=== PATIENT | male | born 1955 | race Caucasian/White ===

== ENCOUNTER 2018-01-16 15:09 | Outpatient (CLI) | payer BC ==
[2018-01-16 16:20] LABS: #Basophils 0.1 thou/uL (0.0-0.2); #Eosinphils 0.1 thou/uL (0.0-0.7); #Lymphocytes 1.9 thou/uL (1.20-3.40); #Monocytes 0.8 thou/uL (0.11-0.59); #Neutrophils 4.5 thou/uL (1.40-6.50); %Basophils 0.8 % (0.0-1.0); %Eosinophils 1.9 % (0.0-10.0); %Lymphocytes 25.8 % (21.0-51.0); %Monocytes 11.3 % (0.0-10.0); %Neutrophils 60.2 % (42.0-75.0); Hemoglobin 14.9 g/dL (14.0-18.0); Mean Corpuscular HGB CONC 32.1 g/dL (32.0-36.0); Mean Corpuscular Hemoglobin 30.9 pg (27.0-31.0); Mean Corpuscular Volume 96.2 fL (78.0-98.0); Mean Platelet Volume 7.8 fL (7.4-10.4); Platelet Count 184 thou/uL (130-400); RBC Distribution Width 12.6 % (11.5-14.5); Red Blood Cell (RBC) Count 4.82 mill/uL (4.70-6.10); White Blood Cell (WBC) Count 7.5 thou/uL (4.8-10.8)
== END 2018-01-16 15:10 | disposition home or self-care (01) ==
LOC: LABBT 15:09
PROVIDERS: ATTEND Internal Medicine Cardiovascular Disease
DX: Z01.812 Encounter for preprocedural laboratory examination (principal); R94.30 Abnormal result of cardiovascular function study, unspecified
CPT/HCPCS: 36415; 80053; 80061; 85025

== ENCOUNTER 2018-01-19 06:00 | Inpatient (IN) | payer BC ==
[2018-01-16 15:42] VITALS: BMI 24.3
[2018-01-19] MEDS ORDERED: Lidocaine 1% (PF) 30 ML VIAL ONE (06:28)
[2018-01-19] MEDS ORDERED: Heparin 10,000 UNITS/1 ML VIAL ONE (06:28)
[2018-01-19] MEDS ORDERED: Diazepam 5 MG TAB ONE (06:55)
[2018-01-19] MEDS ORDERED: Fentanyl 100 MCG/2 ML VIAL ONE (07:07)
[2018-01-19] MEDS ORDERED: Midazolam HCl 2 mg/2 ml Vial ONE (07:07)
[2018-01-19] MEDS ORDERED: Protamine Sulfate 50 MG/5 ML VIAL ONE (07:33)
[2018-01-19] MEDS ORDERED: Aggrastat 12.5 MG/250 ML 250 ML ONE (07:43)
[2018-01-19] MEDS ORDERED: Acetaminophen/Codeine 30-300mg Tablet PO PRN ×2 (08:03)
[2018-01-19] MEDS ORDERED: Nitroglycerin 0.4 MG TAB (25 Tab Bottle) SL PRN (08:03)
[2018-01-19] MEDS ORDERED: traMADol HCl 50 MG TAB PO PRN (08:03)
[2018-01-19] MEDS ORDERED: Aggrastat 12.5 MG/250 ML 250 ML IVPB SCH (08:15)
[2018-01-19] MEDS ORDERED: Sodium Chloride 0.9% 1,000 ML IV SCH (08:15)
[2018-01-19] MEDS ORDERED: Sodium Chloride 0.9% 200 ML IV SCH (08:15)
[2018-01-19] MEDS ORDERED: traMADol HCl 50 MG TAB ONE (09:34)
[2018-01-19] MEDS ORDERED: Iopamidol 370 76% 100 ML VIAL ONE (10:35)
[2018-01-19] MEDS ORDERED: Morphine 4 MG/ML VIAL ONE (11:26)
[2018-01-19] MEDS ORDERED: Morphine 2 MG/ML SYRINGE SLOW IVP PRN (11:54)
[2018-01-19] MEDS ORDERED: Atropine Sulfate 1 mg/10 ml Syringe ONE (12:52)
[2018-01-19 15:08] LABS: Hemoglobin 14.5 g/dL (14.0-18.0); Platelet Count 193 thou/uL (130-400)
[2018-01-19] MEDS: Bupropion 150 MG XL TAB PO SCH (15:48)
[2018-01-19] MEDS: clonazePAM 0.5 MG TAB PO SCH ×3 (15:48→20:17)
[2018-01-19] MEDS: Aripiprazole 10 MG TAB PO SCH (15:49)
[2018-01-19] MEDS: Carvedilol 3.125 MG TAB PO SCH (16:01)
[2018-01-19] MEDS ORDERED: Carvedilol 6.25 MG TAB PO SCH (17:00)
[2018-01-19] MEDS ORDERED: Bupropion 150 MG XL TAB PO SCH (21:00)
[2018-01-19] MEDS ORDERED: Rosuvastatin 20 MG TAB PO SCH (21:00)
[2018-01-20 05:52] LABS: Hemoglobin 14.2 g/dL (14.0-18.0); Platelet Count 192 thou/uL (130-400)
[2018-01-20 06:13] LABS: Anion Gap 9 mmol/L (10-20); BUN (Urea Nitrogen) 18 mg/dL (8.4-25.7); Calc. Creatinine Clearance 72 mL/min (70-130); Calcium 9.1 mg/dL (7.8-10.44); Carbon Dioxide 25 mmol/L (23-31); Chloride 109 mmol/L (98-107); Estimated GFR-MDRD 55; Glucose 124 mg/dL (80-115); Potassium 4.4 mmol/L (3.5-5.1); Sodium 139 mmol/L (136-145)
[2018-01-20] MEDS ORDERED: Prevnar 13-Val Conj/PF 0.5 ML SYRINGE IM ONE (09:00)
[2018-01-20] MEDS ORDERED: Aspirin 325 mg Enteric Coated Tablet PO SCH (09:00)
--- NOTE | 2018-01-20 09:04 | DIS ---
DISCHARGE DIAGNOSES: 1. Noncompliance with aspirin and other medications. 2. Thrombus in the first obtuse marginal graft and in the ramus graft. 3. Twenty-four hours of Aggrastat and aspirin resumed. 4. Status post coronary artery bypass graft x4 with grafts patent. 5. Moderate left ventricular dysfunction at this time with ejection fraction of 35-40%. 6. Smoker. 7. History of myocardial infarction. 8. Ischemic cardiomyopathy, ejection fraction of 30-35% prior to surgery which increased to 50-55%, but is now down to 35-40%. 9. Moderate mitral regurgitation. 10. Hypercholesterolemia. 11. Positive family history. 12. Chronic kidney disease. 13. Erectile dysfunction. 14. Anxiety/depression. DISCHARGE DISPOSITION: The patient will be seen in 2 months with fasting lipid profile and complete metabolic profile being obtained. DISCHARGE MEDICATIONS: Abilify 10 mg daily, aspirin 325 daily, bupropion XL 150 q.a.m., 300 mg at bedtime, carvedilol 3.125 b.i.d., Klonopin 0.5 t.i.d., simvastatin 40 mg daily, tramadol 50 q.6 hours p.r.n., Cialis 20 mg p.r.n. HOSPITAL COURSE: Mr. Ingram presented in the office for the first time in several years in 12/2017. His had and he lost his job and insurance and he stopped coming for followups. He had resumed smoking. He would get shortness of breath with anxiety, but denied dyspnea on exertion with walking except up a flight of stairs. He also had orthostatic lightheadedness. He underwent Lexiscan Cardiolite testing, which revealed mid to distal anterior wall and proximal inferior wall ischemia. He underwent a cardiac catheterization. There was moderate anterior and mild global hypokinesis with ejection fraction of 35-40%. The left main had 30% stenosis, LAD, 95% proximal stenosis. Circumflex - no significant disease. Ramus 80%. The right coronary was totally occluded proximally. Bypass grafts revealed the CINTRON to the LAD to be patent. The obtuse marginal 1 and ramus grafts were patent; however, both had thrombus present in them. The right coronary artery graft was patent. Upon further discussion with the patient, he had not even been taking aspirin and he was given 324 mg chewable aspirin in the cardiac cath lab technologist and started on Aggrastat for 24 hours. His creatinine prior to catheterization was 1.33 and the day after catheterization was 1.32. Cholesterol is 242, triglycerides 117, HDL 50, LDL 169. He has been on rosuvastatin 20 mg in the past; however, it was felt that he probably needed to be on 40 mg and he will be sent home on that dose. It is somewhat questionable if Mr. Ingram will be compliant with his medications. He was bradycardic at times and his carvedilol dose was reduced from 6.25 b.i.d. to 3.125 b.i.d. This may also be the reason for his orthostatic dizziness. He continues to smoke. [facility]
[2018-01-20 09:10] VITALS: BP 118/73; TEMP 97.9
[2018-01-20] MEDS: clonazePAM 0.5 MG TAB PO SCH (09:19)
[2018-01-20] MEDS: Carvedilol 3.125 MG TAB PO SCH (09:19)
[2018-01-20] MEDS: Bupropion 150 MG XL TAB PO SCH (09:19)
[2018-01-20] MEDS: Aripiprazole 10 MG TAB PO SCH (09:19)
== END 2018-01-20 11:28 | disposition home or self-care (01) | DRG 287 ==
LOC: CCL 06:00 → 2NO 14:54
PROVIDERS: ADMIT Internal Medicine Cardiovascular Disease; ATTEND Internal Medicine Cardiovascular Disease
PROC: 4A023N7 Measurement of Cardiac Sampling and Pressure, Left Heart, Percutaneous Approach (ICD-10-PCS; principal; 2018-01-19)
PROC: B2131ZZ Fluoroscopy of Multiple Coronary Artery Bypass Grafts using Low Osmolar Contrast (ICD-10-PCS; 2018-01-19)
PROC: B2101ZZ Fluoroscopy of Single Coronary Artery using Low Osmolar Contrast (ICD-10-PCS; 2018-01-19)
PROC: B2151ZZ Fluoroscopy of Left Heart using Low Osmolar Contrast (ICD-10-PCS; 2018-01-19)
PROC: 3E03317 Introduction of Other Thrombolytic into Peripheral Vein, Percutaneous Approach (ICD-10-PCS; 2018-01-19)
DX: I25.10 Atherosclerotic heart disease of native coronary artery without angina pectoris (principal); T82.867A Thrombosis due to cardiac prosthetic devices, implants and grafts, initial encounter; Z91.14 Patient's other noncompliance with medication regimen; F17.210 Nicotine dependence, cigarettes, uncomplicated; I25.2 Old myocardial infarction; I25.5 Ischemic cardiomyopathy; E78.00 Pure hypercholesterolemia, unspecified; N52.9 Male erectile dysfunction, unspecified; F41.9 Anxiety disorder, unspecified; F32.9 Major depressive disorder, single episode, unspecified; I25.9 Chronic ischemic heart disease, unspecified; I25.82 Chronic total occlusion of coronary artery; Z95.1 Presence of aortocoronary bypass graft; E78.5 Hyperlipidemia, unspecified; I34.0 Nonrheumatic mitral (valve) insufficiency; M79.10 Myalgia, unspecified site; N18.9 Chronic kidney disease, unspecified; I50.9 Heart failure, unspecified
CPT/HCPCS: 36415; 80048; 80053; 80061; 82533; 85014; 85018; 85025; 85049; 85347; 90471; 90686; 90732; 92977; 93459; 99152; C1769; G0008; G0009; J0461; J1644; J2001; J2250; J2270; J2720; J3010; J3246

== ENCOUNTER 2018-10-12 10:50 | Inpatient (IN) | payer BC ==
[2018-10-12] MEDS ORDERED: Midazolam HCl 5 mg/ml Vial ONE (11:00)
[2018-10-12 11:08] LABS: #Eosinphils 0.1 thou/uL (0.0-0.7); #Lymphocytes 2.2 thou/uL (1.20-3.40); #Monocytes 0.7 thou/uL (0.11-0.59); #Neutrophils 7.6 thou/uL (1.40-6.50); %Basophils 0.4 % (0.0-1.0); %Eosinophils 0.9 % (0.0-10.0); %Lymphocytes 20.6 % (21.0-51.0); %Monocytes 6.9 % (0.0-10.0); %Neutrophils 71.2 % (42.0-75.0); Hemoglobin 16.7 g/dL (14.0-18.0); Mean Corpuscular HGB CONC 31.2 g/dL (32.0-36.0); Mean Corpuscular Volume 96.4 fL (78.0-98.0); Mean Platelet Volume 8.3 fL (7.4-10.4); Platelet Count 187 thou/uL (130-400); RBC Distribution Width 12.6 % (11.5-14.5); Red Blood Cell (RBC) Count 5.56 mill/uL (4.70-6.10); White Blood Cell (WBC) Count 10.7 thou/uL (4.8-10.8)
[2018-10-12] MEDS ORDERED: Lidocaine 1% (PF) 30 ML VIAL ONE (11:10)
[2018-10-12] MEDS ORDERED: Verapamil 5 MG/2 ML VIAL ONE (11:16)
[2018-10-12] MEDS ORDERED: Nitroglycerin 100MG/250ML BOT 250 ML ONE (11:16)
[2018-10-12 11:19] LABS: PTT 28.9 SEC (22.9-36.1); Prothrombin Time 13.2 SEC (12.0-14.7)
[2018-10-12] MEDS ORDERED: Heparin 10,000 UNITS/1 ML VIAL ONE (11:26)
[2018-10-12 11:31] LABS: ALT (SGPT) 36 U/L (8-55); AST (SGOT) 111 U/L (5-34); Albumin 4.3 g/dL (3.4-4.8); Alkaline Phosphatase 71 U/L (40-150); Anion Gap 12 mmol/L (10-20); BUN (Urea Nitrogen) 13 mg/dL (8.4-25.7); Bilirubin, Total 0.3 mg/dL (0.2-1.2); CK (CPK) 1191 U/L (30-200); Calc. Creatinine Clearance 0 mL/min (70-130); Calcium 9.2 mg/dL (7.8-10.44); Carbon Dioxide 24 mmol/L (23-31); Chloride 108 mmol/L (98-107); Estimated GFR-MDRD 54; Globulin 2.8 g/dL (2.4-3.5); Glucose 110 mg/dL (80-115); Potassium 4.2 mmol/L (3.5-5.1); Protein, Total 7.1 g/dL (5.8-8.1); Sodium 140 mmol/L (136-145)
[2018-10-12 12:01] LABS: CKMB 76.9 ng/mL (0-6.6)
[2018-10-12] MEDS ORDERED: Milk Of Magnesia 30 ML UDCUP PO PRN (12:18)
[2018-10-12] MEDS ORDERED: traMADol HCl 50 MG TAB PO PRN (12:18)
[2018-10-12] MEDS ORDERED: Mag-Al 1200 mg/1200 mg/30 ML UDCUP PO PRN (12:18)
[2018-10-12] MEDS ORDERED: Aggrastat 12.5 MG/250 ML 250 ML IVPB SCH (12:30)
[2018-10-12] MEDS ORDERED: Clopidogrel Bisulfate 300 MG TAB PO SCH (12:30)
[2018-10-12] MEDS ORDERED: Propofol 1,000 MG/100 ML VIAL IV ONE (12:51)
[2018-10-12 13:29] LABS: Actual Bicarbonate (HCO3a) 20.6 mEq/L (22-28); Base Excess (BEa) -4.1 mEq/L (-2.0 to +3.0); CO2 Tension 37.2 mmHg (35.0-45.0); Carboxyhemoglobin (COHb) 1.4 gm% (0.0-3.0); Hemoglobin (Hb) 16.7 g/dL (14.0-18.0); O2 Tension (PaO2) 79.8 mmHg (> 80.0); Potassium - ABG Lab 3.75 mmol/L (3.70-5.30); pH, Arterial 7.36 (7.35-7.45)
[2018-10-12] MEDS ORDERED: Nitroglycerin 50 MG/250 ML BOT 250 ML ONE (13:42)
--- NOTE | 2018-10-12 13:44 | RAD ---
Chest one view: HISTORY: Intubation Renal 8 FINDINGS: Endotracheal tube the tip is at approximately the T4 level. There does appear to be an NG tube in hao ce although I cannot follow it beyond the T8 or T9 region. There is considerable overlying monitor leads. Postop midline sternotomy. Parenchymal changes noted in the right lower lobe with minimal righ t hemidiaphragm elevation having the appearance of some right lower lobe atelectasis with possible associated pneumonia. The left lung appears clear. IMPRESSION: Endotracheal tube in satisfactory location. The distal portion of the NG tube is poorly seen and not seen beyond approximately the lower thoracic spine and not definitely seen entering the stomach. Right lower lobe parenchymal changes with evidence for atelectasis and possible pneumonia.
[2018-10-12] MEDS ORDERED: Dexamethasone 10 MG in Sodium Chloride 0.9% 50 ML IVPB SCH (13:45)
[2018-10-12] MEDS ORDERED: Lorazepam 2 MG/ML VIAL ONE (13:48)
[2018-10-12] MEDS ORDERED: niCARdipine 40MG In NaCl 40 MG/200 ML BAG IVPB SCH (14:00)
[2018-10-12] MEDS ORDERED: Nitroglycerin 50 MG/250 ML BOT 250 ML IVPB SCH (14:00)
[2018-10-12] MEDS ORDERED: niCARdipine 25 MG in Sodium Chloride 0.9% 250 ML 240 ML IVPB SCH (14:00)
[2018-10-12 14:25] LABS: Actual Bicarbonate (HCO3a) 19.2 mEq/L (22-28); Base Excess (BEa) -7.9 mEq/L (-2.0 to +3.0); CO2 Tension 45.1 mmHg (35.0-45.0); Calcium, Ionized 1.07 mmol/L (1.12-1.30); Carboxyhemoglobin (COHb) 1.2 gm% (0.0-3.0); Hemoglobin (Hb) 16.8 g/dL (14.0-18.0); O2 Tension (PaO2) 87.2 mmHg (> 80.0); Potassium - ABG Lab 3.62 mmol/L (3.70-5.30)
[2018-10-12 14:29] LABS: Puncture Site ALINE
[2018-10-12 14:29] LABS: pH, Arterial 7.25 (7.35-7.45)
[2018-10-12 14:30] LABS: ALV-art Gradient 141.625 (0-20); Puncture Site ALINE
--- NOTE | 2018-10-12 14:44 | CON ---
DATE OF CONSULTATION: CHIEF COMPLAINT: Acute AK and third-degree block. HISTORY OF PRESENT ILLNESS: History is limited. Mr. Ingram recently was life flighted from an outlying town after he developed shortness of breath, bradycardia, and near passing out spell. He was intubated in the field. He also had intermittent third-degree AV block and ST-segment elevation noted inferiorly. These were both concerning for right coronary artery lesion. He was brought urgently to the emergency room, where he was stabilized, although upon transfer to the bed, he was inadvertently extubated. No family was available. PAST MEDICAL HISTORY: Hyperlipidemia; previous tobacco abuse; CAD, status post bypass surgery; previous AK; anxiety; depression. ALLERGIES: ATORVASTATIN. SOCIAL HISTORY: Significant issues with noncompliance. HOME MEDICATIONS: Unknown. REVIEW OF SYSTEMS: Unobtainable. He is currently intubated and sedated. PHYSICAL EXAMINATION: GENERAL: Currently, intubated and sedated. VITAL SIGNS: Blood pressure 211/110, respirations 20, heart rate is 78. NEUROLOGIC: The patient is alert and oriented x3 with no focal neurologic deficits. HEENT: Sclerae without icterus. Mouth has moist mucous membranes with normal pallor. NECK: No JVD. Carotid upstroke brisk. No bruits bilaterally. LUNGS: Clear to auscultation with unlabored respirations. BACK: No scoliosis or kyphosis. CARDIAC: Regular rate and rhythm with normal S1 and S2. No S3 or S4 noted. No significant rubs, murmurs, thrills, or gallops noted throughout the precordium. PMI is not displaced. There is no parasternal heave. ABDOMEN: Soft, nontender, nondistended. No peritoneal signs present. No hepatosplenomegaly. No abnormal striae. EXTREMITIES: 2+ femoral and 2+ dorsalis pedis pulses. No cyanosis, clubbing, or edema. SKIN: No gross abnormalities. DIAGNOSTIC STUDIES: EKG showed normal sinus rhythm, ST-segment elevation inferiorly. PERTINENT LABORATORY DATA: Pending. IMPRESSION: 1. Acute myocardial infarction. 2. Coronary artery disease. 3. Status post bypass surgery. 4. Noncompliance. RECOMMENDATIONS: At this point, recommend urgent coronary angiography plus PCI. I did review his previous films. He did have a graft noted to the right coronary artery. He also had a graft noted to an OM and diagonal branch and the CINTRON to the LAD. This was felt to be emergent and the patient was transferred to the tailings dam laborer in guarded condition. He will likely also need a temporary pacemaker due to intermittent third-degree block, likely from a recent AK to the right coronary distribution. Job ID: [id number]
[2018-10-12 17:00] LABS: CKMB 186.5 ng/mL (0-6.6); Troponin I 44.863 ng/mL (< 0.028)
--- NOTE | 2018-10-12 17:20 | CON ---
DATE OF CONSULTATION: 10/12/2018 TIME SPENT: 45 minutes of Critical Care time. CONSULTING PHYSICIAN: Mario Goodman MD REASON FOR CONSULTATION: Respiratory failure. HISTORY OF PRESENT ILLNESS: This patient presented from [facility] with an ST-segment myocardial infarction. He was intubated by EMS. He self-extubated in the ER and was re-intubated prior to going to the senior cytogenetics laboratory director. I believe he had a graft from the previous coronary artery bypass grafting surgery, which was found to be occluded. I am not sure what intervention was made. He did have to have a transvenous pacemaker placed because of intermittent third-degree heart block. When I saw him afterward in the CCU, he was stable except very uncomfortable from the ET tube being in place, so I made a decision to extubate him. Unfortunately, he became stridorous, and we have had to put him on BiPAP, and right now, he seems stable aside from his blood pressure. PAST MEDICAL HISTORY: 1. Coronary artery disease. 2. Anxiety. 3. Hyperlipidemia. MEDICATIONS: 1. Clonazepam 0.5 mg t.i.d. as needed. 2. Carvedilol 6.25 mg b.i.d. 3. Cialis 20 mg daily as needed. 4. Bupropion SR 150 mg 2 tablets in the evening and 1 tablet in the morning. 5. Aspirin 81 mg daily. 6. Abilify 5 mg every day. 7. Crestor 20 mg daily. SOCIAL HISTORY: Former 1 pack per day smoker, currently uses a vape pen, goes to approximately 2 pots a day. No illicit drug use. FAMILY MEDICAL HISTORY: Remarkable for coronary artery disease. REVIEW OF SYSTEMS: Cannot be obtained as the patient is currently on mechanical ventilation. PHYSICAL EXAMINATION: VITAL SIGNS: Heart rate 70, blood pressure 240/118, O2 saturation 100%, respiratory rate 27. GENERAL: He is currently on BiPAP, appears stable. HEENT: Unremarkable. NECK: No adenopathy or JVD. CHEST: Clear to auscultation anteriorly. CARDIAC: S1 and S2. Regular. ABDOMEN: Soft and nontender. EXTREMITIES: He has a right groin A-line and a right groin transvenous pacer. LABORATORY DATA: White blood cell count 10.7, hematocrit 53.6, platelet count 187. Troponin is 5.0. Sodium 140, potassium 4.2, chloride 108, CO2 of 24, BUN 13, creatinine 1.4, glucose 110. INR 1.0. His chest x-ray showed no overt mass, effusion, or infiltrate. ASSESSMENT: 1. Status post myocardial infarction. 2. Transient respiratory failure - he was basically intubated because of the bradycardia. 3. Postextubation stridor. 4. Hypertension. PLAN: 1. The patient will be kept on BiPAP. Hopefully, he will have to be reintubated. 2. I will give him a dose of Decadron and racemic epinephrine. 3. Ativan as needed for anxiety. 4. Cardene drip if needed. 5. Nitroglycerin drip. 6. We will follow with you. Job ID: [id number]
[2018-10-12 20:25] LABS: CKMB 189.5 ng/mL (0-6.6); Troponin I 56.171 ng/mL (< 0.028)
[2018-10-12] MEDS: Famotidine/PF 20 mg/2ml Vial SLOW IVP SCH (21:27)
[2018-10-12] MEDS: Carvedilol 3.125 MG TAB PO SCH (21:28)
[2018-10-12] MEDS ORDERED: Sodium Chloride 0.9% 250 ML IV SCH (22:15)
[2018-10-12] MEDS: Heparin 25,000 units/D5W 500 ML IV SCH (22:50)
[2018-10-12] MEDS: Heparin 10,000 UNITS/ 10 ML VIAL SLOW IVP SCH (22:50)
[2018-10-12] MEDS: Sodium Chloride 0.9% 1,000 ML IV SCH (22:51)
[2018-10-12] MEDS: Lorazepam 2 MG/ML VIAL SLOW IVP PRN (22:53)
[2018-10-13 05:10] LABS: #Lymphocytes 0.7 thou/uL (1.20-3.40); #Monocytes 0.4 thou/uL (0.11-0.59); #Neutrophils 10.9 thou/uL (1.40-6.50); %Basophils 0.1 % (0.0-1.0); %Eosinophils 0.1 % (0.0-10.0); %Lymphocytes 5.4 % (21.0-51.0); %Monocytes 3.6 % (0.0-10.0); %Neutrophils 90.8 % (42.0-75.0); Hemoglobin 13.9 g/dL (14.0-18.0); Mean Corpuscular HGB CONC 32.1 g/dL (32.0-36.0); Mean Corpuscular Hemoglobin 30.7 pg (27.0-31.0); Mean Corpuscular Volume 95.6 fL (78.0-98.0); Mean Platelet Volume 9.5 fL (7.4-10.4); Platelet Count 163 thou/uL (130-400); RBC Distribution Width 12.6 % (11.5-14.5); Red Blood Cell (RBC) Count 4.53 mill/uL (4.70-6.10)
[2018-10-13 05:19] LABS: ALT (SGPT) 54 U/L (8-55); AST (SGOT) 237 U/L (5-34); Albumin 3.8 g/dL (3.4-4.8); Alkaline Phosphatase 57 U/L (40-150); Anion Gap 13 mmol/L (10-20); BUN (Urea Nitrogen) 19 mg/dL (8.4-25.7); Bilirubin, Total 0.4 mg/dL (0.2-1.2); Calc. Creatinine Clearance 0 mL/min (70-130); Calcium 8.9 mg/dL (7.8-10.44); Carbon Dioxide 21 mmol/L (23-31); Chloride 110 mmol/L (98-107); Estimated GFR-MDRD 53; Globulin 2.3 g/dL (2.4-3.5); Glucose 140 mg/dL (80-115); Potassium 4.2 mmol/L (3.5-5.1); Protein, Total 6.1 g/dL (5.8-8.1); Sodium 140 mmol/L (136-145)
[2018-10-13] MEDS: Sodium Chloride 0.9% 1,000 ML IV SCH ×3 (08:44→17:11)
[2018-10-13] MEDS: Famotidine/PF 20 mg/2ml Vial SLOW IVP SCH ×2 (08:47→20:52)
[2018-10-13] MEDS: Carvedilol 3.125 MG TAB PO SCH ×2 (08:49→16:33)
--- NOTE | 2018-10-13 09:29 | PRG ---
DATE OF SERVICE: 10/13/2018 SUBJECTIVE: Mr. Ingram is very sedated this morning. He has been on Precedex drip. He also received a dose of Ativan. He is still on the BiPAP, but appears comfortable. PHYSICAL EXAMINATION: VITAL SIGNS: His temperature is 97.8, pulse 50, blood pressure 104/59 via right femoral A-line. HEENT: Unremarkable. NECK: No stridorous air noises. LUNGS: Clear. CARDIAC: S1 and S2 paced. ABDOMEN: Soft. EXTREMITIES: No edema. LABORATORY DATA: White blood cell count 12, hematocrit 43.3, and platelet count 163. PTT is 113. Sodium 140, potassium 4.2, chloride 110, CO2 of 21, BUN 19, creatinine 1.3, and glucose 140. Troponin is 56. ASSESSMENT: 1. Myocardial infarction. 2. Post extubation stridor. 3. Bradyarrhythmias. PLAN: 1. Try to lessen sedation and try off BiPAP as tolerated. 2. Continue anticoagulation per Cardiology. 3. Discussed with family at bedside. Job ID: [id number]
[2018-10-13] MEDS: Aspirin Chewable 81 MG TAB PO SCH ×2 (11:10→11:43)
[2018-10-13] MEDS: DOPamine 400 MG/D5W 250 ML 250 ML IVPB SCH (11:34)
[2018-10-13] MEDS: Acetaminophen/Codeine 30-300mg Tablet PO PRN ×2 (18:09→22:10)
[2018-10-13] MEDS: Heparin 10,000 UNITS/ 10 ML VIAL SLOW IVP SCH (18:39)
--- NOTE | 2018-10-13 18:50 | EKG ---
Test Reason : POST ANIGOPLASTY-RCA Blood Pressure : / mmHG Vent. Rate : 069 BPM Atrial Rate : 069 BPM P-R Int : 156 ms QRS Dur : 116 ms QT Int : 418 ms P-R-T Axes : 073 061 104 degrees QTc Int : 447 ms Normal sinus rhythm Left ventricular hypertrophy with QRS widening ST elevation consider inferior injury or acute infarct * ACUTE [place] * Consider right ventricular involvement in acute inferior infarct Abnormal ECG When compared with ECG of 22-JUN-2007 17:10, QRS duration has increased ST elevation now present in Inferior leads ST now depressed in Lateral leads Nonspecific T wave abnormality now evident in Lateral leads Confirmed by BERTRAM CAMPO, DR. Alvarado (4) on 10/13/2018 6:50:05 PM Referred By: JAMARI Confirmed By:DR. Jenny BURDEN MD
--- NOTE | 2018-10-13 18:53 | EKG ---
Test Reason : Blood Pressure : / mmHG Vent. Rate : 051 BPM Atrial Rate : 049 BPM P-R Int : 000 ms QRS Dur : 168 ms QT Int : 532 ms P-R-T Axes : 000 -47 089 degrees QTc Int : 490 ms Electronic ventricular pacemaker When compared with ECG of 12-OCT-2018 13:09, (Unconfirmed) Electronic ventricular pacemaker has replaced Sinus rhythm Confirmed by BERTRAM CAMPO, SGabe (4) on 10/13/2018 6:53:35 PM Referred By: JAMARI Confirmed By:DR. Jenny BURDEN MD
--- NOTE | 2018-10-13 18:54 | EKG ---
Test Reason : Blood Pressure : / mmHG Vent. Rate : 041 BPM Atrial Rate : 041 BPM P-R Int : 158 ms QRS Dur : 114 ms QT Int : 528 ms P-R-T Axes : 001 046 -72 degrees QTc Int : 435 ms Demand pacemaker; interpretation is based on intrinsic rhythm Marked sinus bradycardia with occasional Premature ventricular complexes Abnormal ECG When compared with ECG of 13-OCT-2018 07:21, (Unconfirmed) Sinus rhythm has replaced Electronic ventricular pacemaker Confirmed by BERTRAM CAMPO, DR. Alvarado (4) on 10/13/2018 6:54:18 PM Referred By: JAMARI Confirmed By:DR. Jenny BURDEN MD
[2018-10-14] MEDS: Heparin 25,000 units/D5W 500 ML IV SCH (02:09)
[2018-10-14] MEDS: DOPamine 400 MG/D5W 250 ML 250 ML IVPB SCH (02:10)
[2018-10-14] MEDS: Sodium Chloride 0.9% 1,000 ML IV SCH (02:10)
[2018-10-14] MEDS: Acetaminophen/Codeine 30-300mg Tablet PO PRN ×2 (06:27→10:32)
[2018-10-14 06:47] LABS: #Lymphocytes 1.1 thou/uL (1.20-3.40); #Monocytes 1.3 thou/uL (0.11-0.59); #Neutrophils 11.1 thou/uL (1.40-6.50); %Monocytes 9.3 % (0.0-10.0); %Neutrophils 82.6 % (42.0-75.0); Hemoglobin 12.5 g/dL (14.0-18.0); Mean Corpuscular HGB CONC 32.7 g/dL (32.0-36.0); Mean Corpuscular Hemoglobin 30.8 pg (27.0-31.0); Mean Corpuscular Volume 94.1 fL (78.0-98.0); Platelet Count 138 thou/uL (130-400); RBC Distribution Width 12.3 % (11.5-14.5); Red Blood Cell (RBC) Count 4.06 mill/uL (4.70-6.10); White Blood Cell (WBC) Count 13.5 thou/uL (4.8-10.8)
[2018-10-14 07:02] LABS: Anion Gap 9 mmol/L (10-20); BUN (Urea Nitrogen) 20 mg/dL (8.4-25.7); Calc. Creatinine Clearance 0 mL/min (70-130); Calcium 8.7 mg/dL (7.8-10.44); Carbon Dioxide 25 mmol/L (23-31); Cardiac Risk 3.7 (Less than 4.5); Chloride 109 mmol/L (98-107); Cholesterol 137 mg/dl (< 200 Desired); Estimated GFR-MDRD 60; Glucose 135 mg/dL (80-115); HDL Cholesterol 37 mg/dL (>60 Neg Risk); LDL Cholesterol, Calculated 77 mg/dL; Potassium 3.8 mmol/L (3.5-5.1); Sodium 139 mmol/L (136-145); Triglycerides 116 mg/dL (Less than 150)
--- NOTE | 2018-10-14 07:49 | PRG ---
DATE OF SERVICE: 10/14/2018 SUBJECTIVE: Mr. Ingram actually did well last night. He was placed on a dopamine drip last night, so he has not had any episodes of bradycardia and the pacemaker has not captured because his rate has not fallen below 50. He also did not require use of BiPAP last night. He no longer has a sore throat and has had no stridorous breathing. OBJECTIVE: VITAL SIGNS: On exam, temperature is 98.8, pulse 64, and blood pressure 115/60. His intake for 24 hours 3900, output 1740. HEENT: Unremarkable. NECK: No adenopathy or JVD. LUNGS: Clear anteriorly. CARDIAC: S1 and S2. Regular. ABDOMEN: Soft and nontender. EXTREMITIES: He has a right femoral art line and a right femoral transvenous pacer. LABORATORY DATA: White blood cell count 13.5, hematocrit 38.1, and platelet count 138. PTT is 77.6. Sodium 139, potassium 3.8, chloride 109, CO2 of 25, BUN 20, creatinine 1.2, and glucose 135. ASSESSMENT: 1. Myocardial infarction. 2. Transient complete heart block. 3. Post extubation stridor, which is now resolved. PLAN: I have cleaned up his unnecessary medications from the MAR. The BiPAP machine will be discontinued from the room. As soon as the transvenous pacemaker is at, he can be transferred to the floor. Job ID: [id number]
--- NOTE | 2018-10-14 08:01 | RAD ---
XR Chest 1 View Portable HISTORY: Respiratory distress, pneumonia COMPARISON: 10/12/2018 FINDINGS: There is been interval removal of the endotracheal and nasogastric tubes. Changes of median sternotomy are again seen. The heart size is normal. The lungs are well expanded without lobar consolidation, pneumothoraces or pleural effusions. IMPRESSION: No radiographic evidence of acute cardiopulmonary process.
[2018-10-14] MEDS: Aspirin Chewable 81 MG TAB PO SCH (08:28)
[2018-10-14] MEDS: Famotidine/PF 20 mg/2ml Vial SLOW IVP SCH ×2 (08:28→21:58)
[2018-10-14] MEDS: Ezetimibe 10 MG TAB PO SCH (08:28)
[2018-10-14] MEDS ORDERED: Morphine 4 MG/ML VIAL SLOW IVP PRN (12:54)
[2018-10-14] MEDS ORDERED: Morphine 4 MG/ML VIAL ONE (12:57)
[2018-10-14] MEDS ORDERED: Morphine 2 MG/ML SYRINGE SLOW IVP PRN (12:57)
[2018-10-14] MEDS ORDERED: Aggrastat 12.5 MG/250 ML 250 ML IVPB SCH (13:00)
[2018-10-14] MEDS: Aggrastat 12.5 MG/250 ML 250 ML IVPB SCH (13:11)
[2018-10-14] MEDS ORDERED: Iopamidol 370 76% 100 ML VIAL ONE (13:27)
[2018-10-14] MEDS ORDERED: Aspirin Chewable 81 MG TAB PO SCH (13:45)
[2018-10-14] MEDS ORDERED: Heparin 10,000 UNITS/1 ML VIAL ONE (14:27)
[2018-10-14] MEDS ORDERED: Lidocaine 1% (PF) 30 ML VIAL ONE (14:27)
[2018-10-14] MEDS ORDERED: Ondansetron PF 4 MG/2 ML Vial ONE (14:38)
[2018-10-14] MEDS ORDERED: Nitroglycerin 100MG/250ML BOT 0 ML ONE (14:38)
[2018-10-14] MEDS ORDERED: Fentanyl 100 MCG/2 ML VIAL ONE (15:06)
[2018-10-14] MEDS ORDERED: Midazolam HCl 2 mg/2 ml Vial ONE (15:06)
[2018-10-14] MEDS ORDERED: TICAGRELOR 90 MG TABLET ONE (15:29)
--- NOTE | 2018-10-14 15:30 | EKG ---
Test Reason : Blood Pressure : / mmHG Vent. Rate : 064 BPM Atrial Rate : 064 BPM P-R Int : 136 ms QRS Dur : 102 ms QT Int : 444 ms P-R-T Axes : -05 031 -72 degrees QTc Int : 458 ms Normal sinus rhythm Inferior infarct (cited on or before 14-OCT-2018) Abnormal ECG When compared with ECG of 13-OCT-2018 07:23, Electronic demand pacing is no longer Present Premature ventricular complexes are no longer Present Vent. rate has increased BY 23 BPM Confirmed by BERTRAM CAMPO, DR. Alvarado (4) on 10/14/2018 3:30:04 PM Referred By: GLENROY Confirmed By:DR. Jenny BURDEN MD
[2018-10-14] MEDS ORDERED: Heparin 25,000 units/D5W 500 ML ONE (15:31)
--- NOTE | 2018-10-14 15:31 | EKG ---
Test Reason : Blood Pressure : / mmHG Vent. Rate : 055 BPM Atrial Rate : 055 BPM P-R Int : 138 ms QRS Dur : 094 ms QT Int : 456 ms P-R-T Axes : 000 051 -65 degrees QTc Int : 436 ms Sinus bradycardia Inferior infarct (cited on or before 14-OCT-2018) * ACUTE [place] * Consider right ventricular involvement in acute inferior infarct Abnormal ECG When compared with ECG of 14-OCT-2018 12:06, (Unconfirmed) No significant change was found Confirmed by BERTRAM CAMPO, DR. Alvarado (4) on 10/14/2018 3:31:30 PM Referred By: GLENROY Confirmed By:DR. Jenny BURDEN MD
[2018-10-14] MEDS ORDERED: Adenosine 6 MG/2 ML VIAL ONE (16:24)
[2018-10-14] MEDS ORDERED: Sodium Chloride 0.9% 1,000 ML IV SCH ×2 (16:44→23:00)
[2018-10-14] MEDS ORDERED: Heparin 10,000 UNITS/ 10 ML VIAL SLOW IVP SCH (16:45)
[2018-10-14] MEDS: Lorazepam 2 MG/ML VIAL SLOW IVP PRN (17:38)
[2018-10-14 18:07] LABS: Troponin I 40.896 ng/mL (< 0.028)
[2018-10-14] MEDS ORDERED: Morphine 4 MG/ML VIAL SLOW IVP SCH (18:45)
[2018-10-14] MEDS ORDERED: Nitroglycerin 50 MG/250 ML BOT 250 ML IVPB PRN (19:33)
[2018-10-14] MEDS ORDERED: Lorazepam 2 MG/ML VIAL SLOW IVP SCH (19:45)
[2018-10-14] MEDS ORDERED: Aripiprazole 10 MG TAB PO SCH (19:45)
[2018-10-14] MEDS: Bupropion 150 MG XL TAB PO SCH (21:58)
[2018-10-14] MEDS: TICAGRELOR 90 MG TABLET PO SCH (21:59)
[2018-10-15] MEDS: Aggrastat 12.5 MG/250 ML 250 ML IVPB SCH ×2 (02:12→17:39)
[2018-10-15 04:18] LABS: #Lymphocytes 0.9 thou/uL (1.20-3.40); #Monocytes 1.1 thou/uL (0.11-0.59); #Neutrophils 10.1 thou/uL (1.40-6.50); %Basophils 0.2 % (0.0-1.0); %Eosinophils 0.1 % (0.0-10.0); %Lymphocytes 7.7 % (21.0-51.0); %Monocytes 9.3 % (0.0-10.0); %Neutrophils 82.8 % (42.0-75.0); Mean Corpuscular HGB CONC 33.5 g/dL (32.0-36.0); Mean Corpuscular Volume 92.4 fL (78.0-98.0); Mean Platelet Volume 8.6 fL (7.4-10.4); Platelet Count 112 thou/uL (130-400); Platelet Morphology Comment Appears Decreased; RBC Distribution Width 12.3 % (11.5-14.5); Red Blood Cell (RBC) Count 3.55 mill/uL (4.70-6.10); White Blood Cell (WBC) Count 12.2 thou/uL (4.8-10.8)
[2018-10-15 04:30] LABS: ALT (SGPT) 35 U/L (8-55); AST (SGOT) 97 U/L (5-34); Albumin 3.2 g/dL (3.4-4.8); Alkaline Phosphatase 44 U/L (40-150); Anion Gap 13 mmol/L (10-20); BUN (Urea Nitrogen) 16 mg/dL (8.4-25.7); Bilirubin, Total 0.9 mg/dL (0.2-1.2); Calc. Creatinine Clearance 0 mL/min (70-130); Calcium 8.3 mg/dL (7.8-10.44); Carbon Dioxide 20 mmol/L (23-31); Chloride 107 mmol/L (98-107); Estimated GFR-MDRD 72; Globulin 2.3 g/dL (2.4-3.5); Glucose 109 mg/dL (80-115); Potassium 3.4 mmol/L (3.5-5.1); Protein, Total 5.5 g/dL (5.8-8.1); Sodium 137 mmol/L (136-145)
[2018-10-15] MEDS: Ezetimibe 10 MG TAB PO SCH (07:48)
[2018-10-15] MEDS: Aspirin Chewable 81 MG TAB PO SCH (07:48)
[2018-10-15] MEDS: Aripiprazole 10 MG TAB PO SCH (07:49)
[2018-10-15] MEDS: Famotidine/PF 20 mg/2ml Vial SLOW IVP SCH ×2 (07:49→23:10)
[2018-10-15] MEDS: Lorazepam 2 MG/ML VIAL SLOW IVP PRN (07:49)
--- NOTE | 2018-10-15 08:01 | PRG ---
DATE OF SERVICE: 10/15/2018 SUBJECTIVE: The patient had to return to the catheterization laboratory technician yesterday afternoon after experiencing chest pain. He was found to have a large amount of thrombus in his RCA graft that was removed. He is currently on and heparin drip. This morning, he seems okay. Apparently, he had some confusion last night and had to be given lots of anxiety medication. OBJECTIVE: VITAL SIGNS: On exam, his temperature is 99.5, pulse 59, blood pressure 134/69, intake in 24 hours 2686, output 2115. HEENT: Unremarkable. NECK: No JVD. CHEST: Clear to auscultation. CARDIAC: S1, S2. Regular. No murmur. ABDOMEN: Soft. EXTREMITIES: No edema. LABORATORY DATA: Today, sodium 137, potassium 3.4, chloride 107, CO2 20, BUN 16, creatinine 1.0, glucose 109. Troponin I yesterday was 40.8. White blood cell count 12.5, hematocrit 32.8, and platelet count 112. ASSESSMENT: 1. Myocardial infarction. 2. Status post respiratory failure requiring mechanical ventilation, with post extubation stridor, which is now resolved. 3. Severe anxiety. 4. Status post transient complete heart block. 5. Developing anemia and slight thrombocytopenia. PLAN: 1. The patient is doing okay from a pulmonary standpoint. His main issues are cardiac in nature. His platelet count and H and H will need to be trended. It might be cooper to switch him to Xarelto as quickly as possible. If the platelet count continues to decrease, this might be heparin mediated. 2. Continue the Abilify and p.r.n. Ativan for agitation. Continue Wellbutrin for anxiety. Job ID: [id number]
[2018-10-15] MEDS: TICAGRELOR 90 MG TABLET PO SCH ×2 (08:54→22:25)
[2018-10-15 10:33] LABS: CKMB 14.4 ng/mL (0-6.6)
[2018-10-15] MEDS ORDERED: Lorazepam 2 MG/ML VIAL SLOW IVP PRN ×2 (12:34→17:15)
--- NOTE | 2018-10-15 12:48 | EKG ---
Test Reason : STAT Blood Pressure : / mmHG Vent. Rate : 063 BPM Atrial Rate : 063 BPM P-R Int : 126 ms QRS Dur : 090 ms QT Int : 408 ms P-R-T Axes : 058 057 -68 degrees QTc Int : 417 ms Sinus rhythm with marked sinus arrhythmia ST elevation consider inferior injury or acute infarct ACUTE DC / STEMI Consider right ventricular involvement in acute inferior infarct Abnormal ECG When compared with ECG of 14-OCT-2018 13:45, Criteria for Inferior infarct are no longer Present Confirmed by DR. Jenny BURDEN MD (4) on 10/15/2018 12:48:24 PM Referred By: GLENROY Confirmed By:DR. Jenny BURDEN MD
--- NOTE | 2018-10-15 12:50 | EKG ---
Test Reason : Blood Pressure : / mmHG Vent. Rate : 087 BPM Atrial Rate : 087 BPM P-R Int : 144 ms QRS Dur : 104 ms QT Int : 384 ms P-R-T Axes : 061 014 -66 degrees QTc Int : 462 ms Normal sinus rhythm Inferior infarct , age undetermined Abnormal ECG When compared with ECG of 14-OCT-2018 18:16, (Unconfirmed) Inferior infarct is now Present ST less depressed in Anterior leads Confirmed by BERTRAM CAMPO, DR. Alvarado (4) on 10/15/2018 12:50:42 PM Referred By: GLENROY Confirmed By:DR. Jenny BURDEN MD
[2018-10-15] MEDS ORDERED: Potassium Chloride 40 MEQ in Sodium Chloride 0.9% 250 ML 250 ML IVPB SCH (13:45)
[2018-10-15] MEDS ORDERED: Magnesium 2 GM/50 ML 2 GM in Premix Bag 1 BAG IVPB SCH (14:00)
--- NOTE | 2018-10-15 14:42 | RAD ---
EXAM: CHEST ONE VIEW HISTORY: Dyspnea COMPARISON: 10/14/2018 FINDINGS: Postsurgical changes related to median sternotomy are again noted. Cardiac silhouette is magnified by projection. Pulmonary vasculature is at the upper limits of normal. There is mild increase in perihilar interstitial densities which may be related to an element of mild pulmonary edema. There is no consolidation or pleural fluid seen. There is suggestion of minimal linear and patchy increased density right lung base, but this is most likely related to superimposition of structures as opposed to developing pneumonitis. No pleural effusion is seen. No other interval change. IMPRESSION: Mild interval increase in perihilar interstitial densities which may be related to interval developme nt of mild pulmonary edema. Follow-up evaluation is recommended.
[2018-10-15 16:00] LABS: Actual Bicarbonate (HCO3a) 20.5 mEq/L (22-28); Base Excess (BEa) -1.3 mEq/L (-2.0 to +3.0); CO2 Tension 26.7 mmHg (35.0-45.0); Calcium, Ionized 1.12 mmol/L (1.12-1.30); Hemoglobin (Hb) 12.5 g/dL (14.0-18.0); O2 Tension (PaO2) 69.9 mmHg (> 80.0); Potassium - ABG Lab 3.55 mmol/L (3.70-5.30)
[2018-10-15 16:02] LABS: ALV-art Gradient 146.275 (0-20); Puncture Site L.R.
[2018-10-15] MEDS ORDERED: Propofol 1,000 MG/100 ML VIAL IV ONE (16:42)
[2018-10-15] MEDS ORDERED: Furosemide 40 MG/4 ML VIAL ONE (16:53)
[2018-10-15] MEDS ORDERED: Rocuronium Bromide 10 MG/ML (10ML VIAL) ONE ×3 (16:56→20:17)
[2018-10-15] MEDS ORDERED: Furosemide 40 MG/4 ML VIAL SLOW IVP SCH (17:00)
[2018-10-15] MEDS: Midazolam HCl 2 mg/2 ml Vial ONE (17:03)
[2018-10-15] MEDS ORDERED: Vecuronium Bromide 20 MG VIAL IV PRN (17:10)
[2018-10-15] MEDS ORDERED: Ventilator Sedation Protocol 1 EACH FS ONE (17:12)
[2018-10-15] MEDS ORDERED: Fentanyl BOLUS 250 ML IVPB PRN (17:15)
[2018-10-15] MEDS ORDERED: fentaNYL Citrate/PF 2,000 MCG in Sodium Chloride 0.9% 60 ML IV SCH (17:15)
[2018-10-15] MEDS ORDERED: DISCONTINUE PREVIOUS NARCOTIC PAIN MEDICATIONS AND BENZODIAZEPINES FS SCH (17:15)
[2018-10-15] MEDS ORDERED: Propofol BOLUS 1,000 MG/100 ML VIAL IV PRN (17:15)
[2018-10-15] MEDS ORDERED: Morphine 2 MG/ML SYRINGE SLOW IVP PRN (17:15)
[2018-10-15] MEDS ORDERED: Propofol 1,000 MG/100 ML VIAL IV PRN (17:15)
--- NOTE | 2018-10-15 17:28 | RAD ---
Portable chest: 10/15/2018 at 5:08 PM COMPARISON: 10/15/2018 at 1:58 PM HISTORY: Intubated patient FINDINGS: There is a new endotracheal tube projecting over the tracheal air column, terminating at th e level of the clavicular heads. There is worsening pulmonary vascular congestion. There is worsening perihilar and bibasilar interstitial prominence with new right perihilar, right basilar, an d right upper lobe airspace disease. Midline sternotomy wires are present. IMPRESSION: Interval intubation. Findings suggesting worsening pulmonary edema.
[2018-10-15] MEDS: Piperacillin/Tazobactam 3.375 GM in Sodium Chloride 0.9% 100 ML IVPB SCH (18:12)
[2018-10-15] MEDS ORDERED: Norepinephrine 4 MG/4 ML VIAL ONE (19:54)
[2018-10-15] MEDS: Norepinephrine 8 MG in Dextrose 5% in Water 242 ML IVPB PRN (20:05)
[2018-10-15 20:13] LABS: Actual Bicarbonate (HCO3a) 22.3 mEq/L (22-28); CO2 Tension 45.7 mmHg (35.0-45.0); Carboxyhemoglobin (COHb) 0.2 gm% (0.0-3.0); Hemoglobin (Hb) 12.4 g/dL (14.0-18.0); O2 Tension (PaO2) 62.8 mmHg (> 80.0); Potassium - ABG Lab 3.52 mmol/L (3.70-5.30); pH, Arterial 7.31 (7.35-7.45)
[2018-10-15] MEDS ORDERED: Amiodarone 150 MG, Admixture Fee 1 EACH in Dextrose 5% in Water 100 ML IVPB SCH (20:15)
[2018-10-15 20:22] LABS: Puncture Site RBRACH
[2018-10-15 20:23] LABS: ALV-art Gradient 593.075 (0-20)
[2018-10-15 20:24] LABS: Hemoglobin 11.5 g/dL (14.0-18.0); Mean Corpuscular HGB CONC 32.5 g/dL (32.0-36.0); Mean Corpuscular Hemoglobin 30.9 pg (27.0-31.0); Mean Corpuscular Volume 95.2 fL (78.0-98.0); Mean Platelet Volume 8.8 fL (7.4-10.4); Platelet Count 137 thou/uL (130-400); RBC Distribution Width 12.3 % (11.5-14.5); Red Blood Cell (RBC) Count 3.73 mill/uL (4.70-6.10); White Blood Cell (WBC) Count 20.4 thou/uL (4.8-10.8)
--- NOTE | 2018-10-15 20:25 | RAD ---
PORTABLE CHEST: INDICATIONS: Central line placement during CPR procedure. COMPARISON: Exam done at 5:08 p.m. FINDINGS: ET tube is in place. A central line is in place through the right subclavian. This line overlies th e SVC and appears in adequate position. There are bilateral infiltrates and edema, unchanged from the recent exam. POS: AGW
[2018-10-15 20:41] LABS: Lactic Acid 6.8 mmol/L (0.5-2.2)
[2018-10-15 20:50] LABS: ALT (SGPT) 29 U/L (8-55); AST (SGOT) 55 U/L (5-34); Albumin 2.7 g/dL (3.4-4.8); Alkaline Phosphatase 41 U/L (40-150); Anion Gap 14 mmol/L (10-20); BUN (Urea Nitrogen) 16 mg/dL (8.4-25.7); Bilirubin, Total 1.2 mg/dL (0.2-1.2); Calc. Creatinine Clearance 57 mL/min (70-130); Calcium 7.4 mg/dL (7.8-10.44); Carbon Dioxide 26 mmol/L (23-31); Chloride 106 mmol/L (98-107); Estimated GFR-MDRD 41; Glucose 172 mg/dL (80-115); Magnesium 2.4 mg/dL (1.6-2.6); Potassium 3.8 mmol/L (3.5-5.1); Protein, Total 4.7 g/dL (5.8-8.1); Sodium 142 mmol/L (136-145)
[2018-10-15 21:02] LABS: Band 5 % (5-11); Lymphocytes 3 % (21-51); MDiff Complete? YES; Monocytes 7 % (0-10); Neutrophil 85 % (42-75); Platelet Morphology Comment Appears Adequate; RBC Morphology Normal
--- NOTE | 2018-10-15 21:07 | PRG ---
DATE OF SERVICE: 10/15/2018 SUBJECTIVE: Mr. Ingram developed a bradycardic arrest. It is unclear what his blood pressure was, but it was noted that his heart rate was trending downward and then he had asystole. Code was called. He has been resuscitated. He is on Levophed. He received 2 L. Without volume infusion, we had to switch him to bilevel ventilation. He is currently on 35/14 with a FiO2 of 100% to get his sat into the 90s. OBJECTIVE: VITAL SIGNS: Blood pressure right now is running in the 130 to 140 range. VASCULAR: Placed an arterial line in his femoral artery. LUNGS: He has equal breath sounds. CHEST: Radiograph shows progression of pulmonary edema. HEART: Regular rhythm. ABDOMEN: Soft. EXTREMITIES: No longer mottled. DIAGNOSTIC DATA: EKG does not show any new ST elevation or dramatic change from past EKGs. LABORATORY DATA: Blood gas showed a pH of 7.31, pCO2 of 45, pO2 of 62. Potassium is 3.5. This pH and this potassium would not lead to bradycardia or arrest in my opinion. IMPRESSION: 1. Congestive heart failure. 2. Status post bradycardic arrest of unclear etiology. We are waiting for the echocardiogram tech. He is critically ill. Certainly, he is in a position where he may not survive this. Girlfriend is here, but there are no family at the bedside. Critical care time, total this evening now 80 minutes. Job ID: [id number]
[2018-10-15 21:48] LABS: Actual Bicarbonate (HCO3a) 17.8 mEq/L (22-28); Base Excess (BEa) -7.3 mEq/L (-2.0 to +3.0); Calcium, Ionized 1.01 mmol/L (1.12-1.30); Carboxyhemoglobin (COHb) 0.5 gm% (0.0-3.0); Hemoglobin (Hb) 13.5 g/dL (14.0-18.0); O2 Tension (PaO2) 62.5 mmHg (> 80.0); Potassium - ABG Lab 3.87 mmol/L (3.70-5.30); pH, Arterial 7.33 (7.35-7.45)
[2018-10-15 21:50] LABS: Puncture Site ALINE
[2018-10-15] MEDS: Amiodarone 450 MG, Admixture Fee 1 EACH in Dextrose 5% in Water 250 ML IVPB SCH (21:54)
[2018-10-15] MEDS: Bupropion 150 MG XL TAB PO SCH (22:25)
[2018-10-15] MEDS: Vecuronium 10 MG VIAL IV PRN (23:07)
[2018-10-16] MEDS: Piperacillin/Tazobactam 3.375 GM in Sodium Chloride 0.9% 100 ML IVPB SCH ×3 (01:25→12:39)
[2018-10-16] MEDS: Norepinephrine 8 MG in Dextrose 5% in Water 242 ML IVPB PRN ×2 (01:26→05:04)
[2018-10-16] MEDS: Vecuronium 10 MG VIAL IV PRN ×3 (01:53→08:44)
[2018-10-16 04:51] LABS: Band 16 % (5-11); Hemoglobin 13.1 g/dL (14.0-18.0); Lymphocytes 3 % (21-51); MDiff Complete? YES; Mean Corpuscular HGB CONC 32.5 g/dL (32.0-36.0); Mean Corpuscular Hemoglobin 30.8 pg (27.0-31.0); Mean Corpuscular Volume 94.7 fL (78.0-98.0); Mean Platelet Volume 9.9 fL (7.4-10.4); Monocytes 1 % (0-10); Neutrophil 80 % (42-75); Platelet Count 167 thou/uL (130-400); Platelet Morphology Comment Appears Adequate; RBC Distribution Width 12.5 % (11.5-14.5); RBC Morphology Normal; Red Blood Cell (RBC) Count 4.27 mill/uL (4.70-6.10); White Blood Cell (WBC) Count 23.5 thou/uL (4.8-10.8)
[2018-10-16 05:02] LABS: Anion Gap 20 mmol/L (10-20); BUN (Urea Nitrogen) 22 mg/dL (8.4-25.7); Calc. Creatinine Clearance 48 mL/min (70-130); Carbon Dioxide 14 mmol/L (23-31); Chloride 106 mmol/L (98-107); Estimated GFR-MDRD 34; Glucose 235 mg/dL (80-115); Magnesium 2.3 mg/dL (1.6-2.6); Potassium 4.8 mmol/L (3.5-5.1); Sodium 135 mmol/L (136-145)
[2018-10-16 05:10] LABS: Critical Call Chem Troponin I RESULT DECREASING; Troponin I 24.482 ng/mL (< 0.028)
[2018-10-16 05:16] VITALS: BMI 26.3
[2018-10-16 07:37] LABS: Actual Bicarbonate (HCO3a) 13.8 mEq/L (22-28); Base Excess (BEa) -10.2 mEq/L (-2.0 to +3.0); Calcium, Ionized 1.02 mmol/L (1.12-1.30); Carboxyhemoglobin (COHb) 0.4 gm% (0.0-3.0); Hemoglobin (Hb) 13.5 g/dL (14.0-18.0); O2 Tension (PaO2) 102.9 mmHg (> 80.0); pH, Arterial 7.34 (7.35-7.45)
[2018-10-16 07:39] LABS: CO2 Tension 25.9 mmHg (35.0-45.0); Puncture Site LINE
[2018-10-16 07:40] LABS: ALV-art Gradient 577.725 (0-20)
--- NOTE | 2018-10-16 08:39 | RAD ---
CHEST 1 VIEW: HISTORY: Dyspnea. Intubated. Followup. COMPARISON: 10/15/2018. FINDINGS: Cardiac silhouette is magnified by projection. Pulmonary vasculature remains engorged. Bilateral wi despread infiltrates, greater on the right than the left, are similar in appearance to the previous e xam. Mediastinum is midline. Lines and tubes appear unchanged in position. No evidence of pneumoth orax. IMPRESSION: Pulmonary vascular congestion, bilateral infiltrates, and other findings are stable. POS: JYOTHI
--- NOTE | 2018-10-16 09:21 | PRG ---
DATE OF SERVICE: 10/16/2018 TIME SPENT: 35 minutes of critical care time. SUBJECTIVE: Events of last night were noted. The patient had a bradycardic arrest, is now on mechanical ventilation. OBJECTIVE: VITAL SIGNS: His temperature is 98.7, pulse in the 60s to 80s, blood pressure is 88/56. Intake for 24 hours 1603, output 2450. HEENT: Pupils briskly reactive. Sclerae anicteric. Oropharynx, ET tube in place. NECK: No JVD. LUNGS: Inspiratory crackles bilaterally. CARDIAC: S1 and S2. Regular. ABDOMEN: Soft and nontender. EXTREMITIES: No edema. LABORATORY DATA: Sodium 135, potassium 4.8, chloride 106, CO2 of 14, BUN 22, creatinine 2.0, glucose 235. Troponin 24.4. PH of 7.34, pCO2 of 25, pO2 of 103, that is on bilevel rate 30, high pressure of 35, low pressure of 16, FiO2 100%. White blood cell count 23.5, hematocrit 40.4, and platelet count 167 with 80% neutrophils, 16% bands. IMAGING STUDIES: His x-ray shows diffuse bilateral infiltrates. Echo shows worsening of mitral regurgitation. ASSESSMENT: 1. Acute respiratory failure requiring mechanical ventilation. 2. Suspect continued issues with his coronaries along with valvular heart disease. 3. The patient has been empirically started on therapy for sepsis, although I doubt that is the cause of his current decompensation. RECOMMENDATION: 1. Continue critical care support with mechanical ventilation. 2. Continue empiric antibiotics. 3. Await results of further cardiac studies. Job ID: [id number]
--- NOTE | 2018-10-16 09:40 | OP ---
DATE OF PROCEDURE: 10/15/2018 INDICATION: Mr. Ingram was evaluated multiple times this afternoon. He is very bronchospastic. He had a waxing and waning clinical condition, and then, late this afternoon, he started to decompensate. I elected to intubate him. DESCRIPTION OF PROCEDURE: Bronchoscope was brought to the bedside. Scope was easily passed through his cords with a bite block. His vocal cords appeared normal. Trachea was normal at the main allen. Right lower lobe, right middle lobe, right upper lobe, left lower lobe, and left upper lobe were visualized. No endobronchial lesions were seen. The tube was secured above the main allen. There sanguineous secretions were seen everywhere. He tolerated the procedure well. PLAN: We will add steroids. Magnesium and neb treatments were given earlier with very little improvement. He was given Lasix, but that was just given. Chest radiograph showed only minimal pulmonary edema. It is unclear at this time whether or not this is cardiac asthma or a reactive airway/COPD exacerbation. He was a heavy smoker, and continues to use electronic cigarettes. CRITICAL CARE TIME: 30 minutes independent of procedure performed. Job ID: [id number]
--- NOTE | 2018-10-16 09:45 | OP ---
DATE OF PROCEDURE: 10/15/2018 PROCEDURE: Arterial line placement. INDICATION FOR PROCEDURE: Hypotension alternating with hypertension, requirements for pressors. DESCRIPTION OF PROCEDURE: His right groin was prepped in sterile fashion. Femoral artery was cannulated with a 5-Vietnamese catheter. A wire was passed. A 5-Vietnamese catheter was then inserted and sewn in place x2. Good waveform was obtained, but he was actually hypertensive compared to Dinamap blood pressure and the arterial line went in, there is no paradox. Job ID: [id number]
--- NOTE | 2018-10-16 09:52 | PRG ---
DATE OF SERVICE: 10/15/2018 The echocardiogram tech at the bedside. I have been watching the echo over his shoulder. Compared to the old echo, it gives the impression the mitral regurgitation is worse. I have discussed with Dr. Deleon, who will review the entire echo once that is complete. This certainly would explain his behavior today and lack of EKG findings on top of progressive pulmonary edema. At this point in time, he is stable, but very tiny doses of Levophed turned up tiny changes going in the opposite direction lead to relative hypotension. We will check a cortisol level. Critical care time, 30 minutes. Job ID: [id number]
[2018-10-16] MEDS ORDERED: Acetaminophen 1,000 MG in Premix Bag 1 BAG IVPB PRN (10:10)
[2018-10-16] MEDS: Amiodarone 450 MG, Admixture Fee 1 EACH in Dextrose 5% in Water 250 ML IVPB SCH (10:11)
[2018-10-16] MEDS: Famotidine/PF 20 mg/2ml Vial SLOW IVP SCH (10:23)
[2018-10-16] MEDS: Aspirin Chewable 81 MG TAB PO SCH (10:26)
[2018-10-16] MEDS: Aripiprazole 10 MG TAB PO SCH (10:26)
[2018-10-16] MEDS: Ezetimibe 10 MG TAB PO SCH (10:26)
[2018-10-16] MEDS: TICAGRELOR 90 MG TABLET PO SCH (10:27)
[2018-10-16] MEDS ORDERED: Lidocaine 1% (PF) 30 ML VIAL ONE (10:58)
[2018-10-16 11:05] VITALS: BP 84/65
--- NOTE | 2018-10-16 11:10 | OP ---
DATE OF PROCEDURE: 10/16/2018 PROCEDURE PERFORMED: Transesophageal echocardiogram. INDICATION: A ___[id number] gentleman with severe mitral regurgitation. DESCRIPTION OF PROCEDURE: The patient in the ICU was sedated. A transesophageal probe was placed in the distal esophagus and stomach. Echocardiographic images were obtained. The transesophageal probe was removed. FINDINGS: 1. Moderate decrease in left ventricular systolic function. 2. Left atrial enlargement. 3. Severe mitral regurgitation. 4. The papillary muscle appears to be infarcted. 5. Mild tricuspid regurgitation. IMPRESSION: Papillary muscle rupture with severe mitral regurgitation. Job ID: [id number]
--- NOTE | 2018-10-16 16:25 | EKG ---
Test Reason : STAT Blood Pressure : / mmHG Vent. Rate : 110 BPM Atrial Rate : 110 BPM P-R Int : 130 ms QRS Dur : 100 ms QT Int : 382 ms P-R-T Axes : 075 073 -40 degrees QTc Int : 516 ms Sinus tachycardia Possible Left atrial enlargement Abnormal ECG When compared with ECG of 15-OCT-2018 07:09, Questionable change in QRS axis ST more depressed in Anterior leads QT has lengthened Confirmed by BERTRAM CAMPO, DR. [id number] ([id number]) on 10/16/2018 4:24:51 PM Referred By: AUGUSTO Confirmed By:DR. Jenny BURDEN MD
[2018-10-16 19:55] VITALS: TEMP 99.8
--- NOTE | 2018-10-19 15:34 | DIS ---
DATE OF ADMISSION: 10/12/2018 DATE OF DISCHARGE: 10/16/2018 HOSPITAL COURSE: Mr. Ingram was admitted with inferior STEMI and taken to the carp[facility] labor supervisor emergently by Dr. Goodman in my absence. He was found to have patent grafts to the obtuse marginal, circumflex, and CINTRON to LAD. The right coronary artery graft was totally occluded. My wire was passed and the area was ballooned, and after flow was established, no significant stenosis could be found. Maintained on heparin, Aggrenox for approximately 30 hours. This was then turned off. His lines were removed, and 1 to 2 hours after that, he again began to have chest discomfort with ST-segment elevation inferiorly. He was taken back to the carpenter labor supervisor emergently after Aggrastat had been started. He was found to have large thrombus in his right coronary artery graft, but it was not totally occluded. A tremendously large amount of thrombotic material was removed with extraction catheter. He was then continued on heparin and Aggrastat. He also was loaded with Brilinta during that time. The next day, at time he would become extremely agitated and became hypoxic, ultimately intubated. He also had a bradycardic arrest and was coded for a period of time. Transthoracic echo showed what appeared to be a flail anterior leaflet, although overall ejection fraction . He then underwent transesophageal echo by Dr. Hawkins. He was found to have severe mitral regurgitation with papillary muscle rupture. He underwent placement of an aortic balloon pump, has been transferred to hospital in [place] in guarded condition. Discussion was held with his common-law and sons regarding how seriously ill he was, and then, he certainly may not survive replacement of the mitral valve. Job ID: [id number]
== END 2018-10-16 14:15 | disposition critical access hospital (66) | DRG 270 ==
LOC: ERS 10:50 → CCU 11:09 → CCL 11:32 → CCU 11:33
PROVIDERS: ADMIT Internal Medicine Cardiovascular Disease; ATTEND Internal Medicine Cardiovascular Disease
PROC: 02C03ZZ Extirpation of Matter from Coronary Artery, One Artery, Percutaneous Approach (ICD-10-PCS; 2018-10-14)
PROC: 3E07317 Introduction of Other Thrombolytic into Coronary Artery, Percutaneous Approach (ICD-10-PCS; 2018-10-14)
PROC: 4A023N7 Measurement of Cardiac Sampling and Pressure, Left Heart, Percutaneous Approach (ICD-10-PCS; 2018-10-14)
PROC: B2131ZZ Fluoroscopy of Multiple Coronary Artery Bypass Grafts using Low Osmolar Contrast (ICD-10-PCS; 2018-10-14)
PROC: B2111ZZ Fluoroscopy of Multiple Coronary Arteries using Low Osmolar Contrast (ICD-10-PCS; 2018-10-14)
PROC: 0BJ08ZZ Inspection of Tracheobronchial Tree, Via Natural or Artificial Opening Endoscopic (ICD-10-PCS; 2018-10-15)
PROC: 03HY32Z Insertion of Monitoring Device into Upper Artery, Percutaneous Approach (ICD-10-PCS; 2018-10-15)
PROC: 4A133B1 Monitoring of Arterial Pressure, Peripheral, Percutaneous Approach (ICD-10-PCS; 2018-10-15)
PROC: 4A133J1 Monitoring of Arterial Pulse, Peripheral, Percutaneous Approach (ICD-10-PCS; 2018-10-15)
PROC: 5A02210 Assistance with Cardiac Output using Balloon Pump, Continuous (ICD-10-PCS; principal; 2018-10-16)
PROC: B24BZZ4 Ultrasonography of Heart with Aorta, Transesophageal (ICD-10-PCS; 2018-10-16)
DX: T82.867A Thrombosis due to cardiac prosthetic devices, implants and grafts, initial encounter (principal); I21.19 ST elevation (STEMI) myocardial infarction involving other coronary artery of inferior wall; J96.00 Acute respiratory failure, unspecified whether with hypoxia or hypercapnia; A41.9 Sepsis, unspecified organism; I46.9 Cardiac arrest, cause unspecified; I44.2 Atrioventricular block, complete; Y83.9 Surgical procedure, unspecified as the cause of abnormal reaction of the patient, or of later complication, without mention of misadventure at the time of the procedure; I25.10 Atherosclerotic heart disease of native coronary artery without angina pectoris; F41.9 Anxiety disorder, unspecified; I50.9 Heart failure, unspecified; D64.9 Anemia, unspecified; D69.6 Thrombocytopenia, unspecified; E78.5 Hyperlipidemia, unspecified; F32.9 Major depressive disorder, single episode, unspecified; Z87.891 Personal history of nicotine dependence; Z95.1 Presence of aortocoronary bypass graft; I25.2 Old myocardial infarction; Z91.14 Patient's other noncompliance with medication regimen
CPT/HCPCS: 31500; 33967; 36415; 71045; 76942; 80048; 80053; 80061; 82533; 82550; 82553; 82805; 83605; 83735; 83880; 84100; 84484; 85025; 85347; 85610; 85730; 87040; 92924; 92973; 92977; 93005; 93010; 93306; 93312; 93454; 94002; 94003; 94640; 94660; 94760; 96374; 99152; 99153; C1725; C1753; C1757; C1769; C1887; J0153; J0282; J1100; J1265; J1644; J1940; J2001; J2060; J2250; J2270; J2405; J2543; J2704; J3010; J3246; J3475; J3480; J3490; J7050; J7070; J7620; Q9967; S0028

== ENCOUNTER 2018-11-19 15:21 | Outpatient (CLI) | payer BC ==
--- NOTE | 2018-11-19 16:26 | RAD ---
PA AND LATERAL CHEST: Date: 11/19/18 HISTORY: Heart congestion. Shortness of breath. COMPARISON: 10/16/18. FINDINGS: Radiopaque renan overlie the anterolateral right chest indicating recent surgical procedure. Postop sternotomy wires are again noted. Lungs show diffuse interstitial prominence, which may have a chron ic component. The vascular markings are upper normal without overt congestive change. There are patch y alveolar and pleural densities bilaterally which may be chronic, although I cannot exclude an eleme nt of focal infiltrate or atelectasis. No significant effusion is apparent. Heart size is within norm al range. The mediastinum is unremarkable. Osseous structures unremarkable. IMPRESSION: Postop changes as noted. There is interstitial prominence bilaterally with patchy parenchymal and ple ural opacities seen in both lower lungs. Follow-up is recommended to assess stability. POS: [facility]
== END 2018-11-19 15:22 | disposition home or self-care (01) ==
LOC: RAD 15:21
PROVIDERS: ATTEND Internal Medicine
DX: I50.23 Acute on chronic systolic (congestive) heart failure (principal); R91.8 Other nonspecific abnormal finding of lung field; Z98.890 Other specified postprocedural states
CPT/HCPCS: 71046

== ENCOUNTER 2018-11-24 11:35 | Outpatient (CLI) | payer BC | END 2018-11-24 11:36 | disposition home or self-care (01) | LOC: ULT 11:35 | PROVIDERS: ATTEND Internal Medicine | DX: I50.23 Acute on chronic systolic (congestive) heart failure (principal); I07.1 Rheumatic tricuspid insufficiency | CPT/HCPCS: 93306 ==

== ENCOUNTER 2019-05-13 10:15 | Day surgery (SDC) | payer BC ==
[2019-05-12 17:03] VITALS: BMI 23.5
[2019-05-13 11:29] LABS: Anion Gap 11 mmol/L (10-20); BUN (Urea Nitrogen) 20 mg/dL (8.4-25.7); Calc. Creatinine Clearance 62 mL/min (70-130); Calcium 9.8 mg/dL (7.8-10.44); Carbon Dioxide 27 mmol/L (23-31); Chloride 107 mmol/L (98-107); Estimated GFR-MDRD 51; Glucose 91 mg/dL (80-115); Potassium 4.6 mmol/L (3.5-5.1); Sodium 140 mmol/L (136-145)
[2019-05-13] MEDS ORDERED: PROPOFOL 0 ML ONE (12:10)
[2019-05-13] MEDS ORDERED: Lidocaine 1% PF 5 ML VIAL ONE (12:30)
[2019-05-13] MEDS ORDERED: PHENYLEPHRINE-NS 100 MCG/ML 10 ML SYRINGE ONE (12:46)
--- NOTE | 2019-05-13 14:56 | OP ---
DATE OF PROCEDURE: 05/13/2019 PROCEDURE PERFORMED: Transesophageal echocardiogram. INDICATION: Nataly is a 63-year-old gentleman with bioprosthetic mitral valve. DESCRIPTION OF PROCEDURE: The patient was taken to the PACU. The patient was sedated by Anesthesiology. A transesophageal probe was placed into the distal esophagus and stomach. Echocardiographic images were obtained. The transesophageal probe was removed. FINDINGS: 1. Severe decrease in left ventricular systolic function. 2. The left ventricle is markedly dilated. 3. Biatrial enlargement. 4. The right ventricle is markedly dilated. 5. Bioprosthetic mitral valve with a large paravalvular leak. 6. Mild tricuspid regurgitation. 7. Atherosclerotic debris in the descending aorta. IMPRESSION: Status post bioprosthetic mitral valve with a large paravalvular leak noted. Job ID: [id number]
== END 2019-05-13 13:35 | disposition home or self-care (01) ==
LOC: CCL 10:15
PROVIDERS: ATTEND Internal Medicine Cardiovascular Disease
PROC: B24BZZ4 Ultrasonography of Heart with Aorta, Transesophageal (ICD-10-PCS; principal; 2019-05-13)
DX: I34.0 Nonrheumatic mitral (valve) insufficiency (principal); I07.1 Rheumatic tricuspid insufficiency; I70.0 Atherosclerosis of aorta; N18.2 Chronic kidney disease, stage 2 (mild); I50.22 Chronic systolic (congestive) heart failure; Q21.1 Atrial septal defect; I25.5 Ischemic cardiomyopathy; I25.2 Old myocardial infarction; E78.00 Pure hypercholesterolemia, unspecified; I48.0 Paroxysmal atrial fibrillation; F33.40 Major depressive disorder, recurrent, in remission, unspecified; Z87.891 Personal history of nicotine dependence; Z79.01 Long term (current) use of anticoagulants; Z79.82 Long term (current) use of aspirin; Z79.899 Other long term (current) drug therapy; Z95.1 Presence of aortocoronary bypass graft; Z95.2 Presence of prosthetic heart valve; Z95.5 Presence of coronary angioplasty implant and graft
CPT/HCPCS: 36415; 80048; 93312; J2001; J2704